=== PATIENT | male | born 1965 | race Caucasian/White ===

== ENCOUNTER 2017-10-08 08:53 | Day surgery (SDC) | payer BC ==
[~2017-10-08] VITALS: Ht 172.7 cm; Wt 103.0 kg
--- NOTE | ~2017-10-08 | OP ---
PATIENT NAME: ROCHELLE KUMAR MEDICAL RECORD: [id number] :61 LOCATION:D.OPS ADMISSION DATE: SURGEON: ENRIKE TOMLINSON MD DATE OF OPERATION: 10/08/2017 PREOPERATIVE DIAGNOSES: 1. Internal hemorrhoids. 2. Hypertension. 3. Hypercholesterolemia. 4. Perineal skin tag. 5. Perineal condyloma. POSTOPERATIVE DIAGNOSES: 1. Internal hemorrhoids. 2. Hypertension. 3. Hypercholesterolemia. 4. Perineal skin tag. 5. Perineal condyloma. PROCEDURE: 1. Anal exam under anesthesia with hemorrhoid banding times 2. 2. Excision of perineal skin tag. 3. Excision of perineal condyloma. SURGEON: Enrike Tomlinson MD WEATHERIZATION FIELD TECHNICIAN: Evonne Akers APRN REPORT OF PROCEDURE: The patient was placed in lithotomy position and the perianal region was prepped and draped in sterile fashion. An anoscope was inserted and we inspected the anus in 360-degree fashion. In the right lateral and superior aspect of the anus, there was noted to be enlarged internal hemorrhoids with no external component. These hemorrhoids were tortuous and right near the dentate line. There were no masses or lesions found and no fissures seen. There was no sign of a fistula tract noted. The hemorrhoids ran from the 10 o'clock to the 12 o'clock position. Hemorrhoid bands times 2 were applied to the area. There was some mild bleeding at the conclusion of this. We reinspected the remainder of the anus and saw no signs of any further anatomy. On the perineal region, at about the 7 o'clock position distal and about 4 cm from the anal verge, there was a small patch of anal condyloma. This was excised with sharp dissection and sent off for permanent specimen. The underlying tissue was treated with electrocautery to stop any bleeding and the wound was left open. The patient had a skin tag present in the left superior buttock/proximal thigh. This was excised using electrocautery down to the surrounding subcutaneous tissues and sent off for permanent specimen. The total width of this incision was about a centimeter in size. The wound was irrigated out and reapproximated with interrupted 5-0 Monocryl. COMPLICATIONS: None. CONDITION: Stable. ANESTHESIA: General endotracheal. BLOOD LOSS: Minimal. 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
[~2017-10-08 08:53] MED LIST: BAYER CHEWABLE81 MG PO; CO Q-10100 MG PO; COZAAR100 MG PO; IBUPROFEN200 MG PO; MIRALAX17 GM PO; OMEPRAZOLE20 M1 PO; PRAVACHOL40 MG PO; TOPROL XL100 MG PO; ZYRTEC10 MG PO
[2017-10-08 09:44] LABS: BASOPHILS 0.4 % (0-2); EOSINOPHILS 2.6 % (0-7); HEMATOCRIT 46.2 % (42.0-54.0); HEMOGLOBIN 16.2 g/dL (13.5-17.5); IMMATURE GRANULOCYTES 0.2 % (0-5); LYMPHOCYTES 37.1 % (15-50); MCH 31.7 pg (26.0-34.0); MCHC 35.1 g/dL (31.0-37.0); MCV 90.4 fL (80.0-100.0); MEAN PLATELET VOLUME 8.9 fL (7.4-10.4); MONOCYTES 11.8 % (2-11); NEUTROPHILS 47.9 % (40-80); PLATELET COUNT 475 10x3/uL (130-400); RBC 5.11 10x6/uL (4.20-6.10); RDW 13.3 % (11.5-14.5); WBC 9.9 10x3/uL (4.8-10.8)
[2017-10-08 10:28] LABS: CALC OSMOLALITY 271 mosm/kg (275-300); CARBON DIOXIDE 27.8 mmol/L (21.0-32.0); CHLORIDE - SERUM 101 mmol/L (98-107); GLUCOSE 95 mg/dL (74-106); POTASSIUM - SERUM 4.1 mmol/L (3.5-5.1); SODIUM 135 mmol/L (136-145); UREA NITROGEN 17 mg/dL (7-18); eGFR NON AFRICAN AMERICAN 83 mL/min (90-120)
[2017-10-08] MEDS ORDERED: PROBIOTIC1 EAC1 PO (10:35)
[2017-10-08 10:39] VITALS: BP 125/77; Ht 172.7 cm; Wt 103.0 kg
[2017-10-08] MEDS ORDERED: HYDROCODONE-APA1 TAB PO (14:13)
== END 2017-10-08 17:00 | disposition home or self-care (01) ==
LOC: D.OPS 08:53 → D.PAN 12:15 → D.OPS 17:00
PROVIDERS: Anesthesiology
DX: K64.8 Other hemorrhoids (principal); A63.0 Anogenital (venereal) warts; B07.8 Other viral warts; I10 Essential (primary) hypertension; E78.00 Pure hypercholesterolemia, unspecified; Z01.812 Encounter for preprocedural laboratory examination